=== PATIENT | male | born 1990 | race Caucasian/White ===

== ENCOUNTER 2022-02-22 09:09 | Emergency (ER) | payer SELFPAY ==
[2022-02-22] MEDS ORDERED: Sodium Chloride 0.9% 10 ML Syringe FLUSH PRN (09:49)
[2022-02-22] MEDS ORDERED: Sodium Chloride 0.9% 2.5 ML Syringe FLUSH PRN (09:49)
[2022-02-22] MEDS ORDERED: Sodium Chloride 0.9% 1,000 ML IV ONE (09:49)
[2022-02-22] MEDS: Ondansetron 4 MG/2 ML SDV IVPUSH ONE ×2 (10:05→10:20)
[2022-02-22 11:16] LABS: BLOOD UREA NITROGEN,BUN 17 mg/dL (7.0-18.0); CARBON DIOXIDE,CO2 25.5 mmol/L (21.0-32.0); CHLORIDE,CL 102 mmol/L (98-107); ESTIMATED GFR 91 mL/min (>60); GLUCOSE RANDOM 118 mg/dL (74-106); LIPASE 64 U/L (73-393); POTASSIUM,K 4.1 mmol/L (3.5-5.1); SODIUM,NA 139 mmol/L (136-148)
== END 2022-02-22 11:55 | disposition home or self-care (01) ==
LOC: MW.ED 09:09
DX: R10.13 Epigastric pain (principal); I10 Essential (primary) hypertension; Z79.899 Other long term (current) drug therapy
CPT/HCPCS: 36415; 74022; 80053; 80307; 83690; 85025; 96360; 99284; J3490; J7030; J2405